=== PATIENT | male | born 1960 | race Caucasian/White ===

== ENCOUNTER → 2020-01-25 15:22 | Outpatient (CLI) | payer BC, SELFPAY ==
[2020-01-25 16:44] LABS: Basophils # 0.1 K/mm3 (0-0.2); Basophils % 0.4 % (0.1-2.0); Eosinophils # 0.2 K/mm3 (0.0-0.4); Eosinophils % 1.9 % (0.1-12.0); Hematocrit 46.9 % (42.0-52.0); Hemoglobin 15.8 g/dL (14.1-18.0); Lymphocytes # 1.5 K/mm3 (0.7-4.5); Lymphocytes % 12.7 % (10-50); Mean Corpuscular HGB Conc 33.7 g/dL (31.8-35.4); Mean Corpuscular Volume 94.9 fl (80-94); Mean Platelet Volume 8.5 fl (7.4-10.4); Monocytes # 0.5 K/mm3 (0.1-1.0); Monocytes % 4.5 % (1.7-9.3); Neutrophils # 9.2 K/mm3 (1.8-7.8); Neutrophils % 80.4 % (37.0-80.0); Platelet Count 217 K/mm3 (142-424); Red Blood Count 4.94 M/mm3 (4.60-6.20); Red Cell Distribution Width 14.4 % (11.5-17.5); White Blood Count 11.5 K/mm3 (4.8-10.8)
[2020-01-25 17:00] LABS: Alanine Aminotransferase 23 U/L (12-78); Albumin Level 4.7 g/dl (3.5-5.0); Albumin/Globulin Ratio 1.8 (1.1-1.8); Alkaline Phosphatase 69 U/L (38-126); Anion Gap 14.5 mEq/L (5-15); Aspartate Amino Transferase 22 U/L (17-59); Bilirubin,Total 0.8 mg/dl (0.2-1.3); Blood Urea Nitrogen 27 mg/dl (9-20); Calcium 9.7 mg/dl (8.4-10.2); Carbon Dioxide 30 mmol/L (22.0-30.0); Chloride 102 mmol/L (98-107); Chol/HDL Ratio 3.1 (1-3.5); Cholesterol 159 mg/dl (140-200); Estimated Glomerular Filt Rate 68 ml/min (>60); GFR (African American) 83 ML/MIN (>60); Globulin 2.6 g/dL (1.3-3.2); Glucose 104 mg/dl (74-100); HDL Cholesterol 51 mg/dl (40-60); Potassium 4.5 mmoL/L (3.5-5.1); Sodium 142 mmol/L (136-145); Total Protein,Serum 7.3 g/dl (6.3-8.2); Triglycerides 111 mg/dl (30-150); VLDL Cholesterol 22 mg/dL (0-40)
[2020-01-25 17:12] LABS: Direct LDL Cholesterol 90.14 mg/dL (100-129)
[2020-01-25 17:32] LABS: Prostate Specific Ag Screen 1.6 ng/ml (0.0-4.0)
[2020-02-01 18:08] LABS: Testosterone, Total, LC/MS 109.9 ng/dL (264.0-916.0); Testosterone,Free 4.3 pg/mL (6.6-18.1)
== END ==
PROVIDERS: Visit Provider Family Medicine
DX: E34.9 Endocrine disorder, unspecified (principal); I10 Essential (primary) hypertension; Z12.5 Encounter for screening for malignant neoplasm of prostate
CPT/HCPCS: 80053; 80061; 84402; 84403; 85025; G0103

== ENCOUNTER → 2020-07-26 09:03 | Outpatient (CLI) | payer BC, SELFPAY ==
[2020-07-26 10:02] LABS: Chloride 104 mmol/L (98-107); Potassium 4.6 mmoL/L (3.5-5.1); Sodium 140 mmol/L (136-145)
[2020-07-26 10:04] LABS: Blood Urea Nitrogen 27 mg/dl (9-20); Estimated Glomerular Filt Rate 86 ml/min (>60); GFR (African American) 104 ML/MIN (>60)
[2020-07-26 10:05] LABS: Alanine Aminotransferase 28 U/L (12-78); Albumin Level 4.8 g/dl (3.5-5.0); Alkaline Phosphatase 63 U/L (38-126); Anion Gap 14.6 mEq/L (5-15); Aspartate Amino Transferase 28 U/L (17-59); Bilirubin,Total 0.7 mg/dl (0.2-1.3); Calcium 9.8 mg/dl (8.4-10.2); Carbon Dioxide 26 mmol/L (22.0-30.0); Chol/HDL Ratio 3.6 (1-3.5); Cholesterol 145 mg/dl (140-200); Globulin 2.4 g/dL (1.3-3.2); Glucose 116 mg/dl (74-100); HDL Cholesterol 40 mg/dl (40-60); Total Protein,Serum 7.2 g/dl (6.3-8.2); Triglycerides 105 mg/dl (30-150); VLDL Cholesterol 21 mg/dL (0-40)
[2020-07-26 10:36] LABS: Thyroid Stimulating Hormone 1.91 uIU/mL (0.465-4.68)
== END ==
PROVIDERS: Visit Provider Family Medicine
DX: E78.5 Hyperlipidemia, unspecified (principal); G25.81 Restless legs syndrome; E03.9 Hypothyroidism, unspecified
CPT/HCPCS: 36415; 80053; 80061; 84443

== ENCOUNTER → 2020-12-16 14:23 | Outpatient (CLI) | payer BC, SELFPAY ==
[2020-12-16 16:23] LABS: Alanine Aminotransferase 27 U/L (12-78); Albumin Level 4.7 g/dl (3.5-5.0); Albumin/Globulin Ratio 1.9 (1.1-1.8); Alkaline Phosphatase 67 U/L (38-126); Anion Gap 15.2 mEq/L (5-15); Aspartate Amino Transferase 23 U/L (17-59); Bilirubin,Total 0.4 mg/dl (0.2-1.3); Blood Urea Nitrogen 25 mg/dl (9-20); Calcium 9.5 mg/dl (8.4-10.2); Carbon Dioxide 28 mmol/L (22.0-30.0); Chloride 104 mmol/L (98-107); Chol/HDL Ratio 3.6 (1-3.5); Cholesterol 162 mg/dl (140-200); Estimated Glomerular Filt Rate 76 ml/min (>60); GFR (African American) 92 ML/MIN (>60); Globulin 2.5 g/dL (1.3-3.2); Glucose 111 mg/dl (74-100); HDL Cholesterol 45 mg/dl (40-60); Potassium 5.2 mmoL/L (3.5-5.1); Sodium 142 mmol/L (136-145); Total Protein,Serum 7.2 g/dl (6.3-8.2); Triglycerides 100 mg/dl (30-150); VLDL Cholesterol 20 mg/dL (0-40)
[2020-12-16 16:37] LABS: Basophils % 0.6 % (0.1-2.0); Eosinophils # 0.1 K/mm3 (0.0-0.4); Eosinophils % 1.5 % (0.1-12.0); Hemoglobin 14.9 g/dL (14.1-18.0); Lymphocytes # 1.2 K/mm3 (0.7-4.5); Lymphocytes % 24.2 % (10-50); Mean Corpuscular HGB Conc 33.1 g/dL (31.8-35.4); Mean Corpuscular Hemoglobin 31.5 pg (27.0-31.2); Mean Corpuscular Volume 95.3 fl (80-94); Mean Platelet Volume 8.7 fl (7.4-10.4); Monocytes # 0.3 K/mm3 (0.1-1.0); Monocytes % 5.3 % (1.7-9.3); Neutrophils # 3.3 K/mm3 (1.8-7.8); Neutrophils % 68.3 % (37.0-80.0); Platelet Count 200 K/mm3 (142-424); Red Blood Count 4.72 M/mm3 (4.60-6.20); Red Cell Distribution Width 12.9 % (11.5-17.5); White Blood Count 4.9 K/mm3 (4.8-10.8)
[2020-12-16 16:39] LABS: T4 (Thyroxine) 6.7 ug/dl (5.53-11.0)
[2020-12-16 16:53] LABS: Thyroid Stimulating Hormone 1.89 uIU/mL (0.465-4.68)
[2020-12-16 17:37] LABS: Iron 81 ug/dL (49-181)
[2020-12-16 17:46] LABS: Total Iron Binding Capacity 251 ug/dL (261-462)
[2020-12-18 07:56] LABS: PSA, Free 0.53 ng/mL; Prostate Specific Ag 1.9 ng/mL (0.0-4.0)
[2020-12-22 21:52] LABS: Testosterone, Total, LC/MS 255.4 ng/dL (264.0-916.0); Testosterone,Free 6.9 pg/mL (6.6-18.1)
[2020-12-27 22:21] LABS: 1,25 Dihydroxy Vitamin D 66 pg/mL (.); 1,25-Dihydroxy, Vitamin D-2 <10 pg/mL (.); 1,25-Dihydroxy, Vitamin D-3 63 pg/mL (.)
== END ==
PROVIDERS: Visit Provider Family Medicine
DX: Z00.00 Encounter for general adult medical examination without abnormal findings (principal)
CPT/HCPCS: 80053; 80061; 82652; 83540; 83550; 84153; 84154; 84402; 84403; 84436; 84443; 85025

== ENCOUNTER → 2021-07-17 08:26 | Outpatient (CLI) | payer BC, SELFPAY ==
[2021-07-17 09:17] LABS: Basophils # 0.1 K/mm3 (0-0.2); Basophils % 1.4 % (0.1-2.0); Eosinophils # 0.1 K/mm3 (0.0-0.4); Eosinophils % 1.2 % (0.1-12.0); Hematocrit 44.7 % (42.0-52.0); Hemoglobin 14.8 g/dL (14.1-18.0); Lymphocytes # 1.4 K/mm3 (0.7-4.5); Lymphocytes % 26.9 % (10-50); Mean Corpuscular HGB Conc 33.1 g/dL (31.8-35.4); Mean Corpuscular Hemoglobin 31.2 pg (27.0-31.2); Mean Corpuscular Volume 94.1 fl (80-94); Mean Platelet Volume 8.8 fl (7.4-10.4); Monocytes # 0.3 K/mm3 (0.1-1.0); Monocytes % 6.1 % (1.7-9.3); Neutrophils # 3.4 K/mm3 (1.8-7.8); Neutrophils % 64.3 % (37.0-80.0); Platelet Count 222 K/mm3 (142-424); Red Blood Count 4.75 M/mm3 (4.60-6.20); Red Cell Distribution Width 13.8 % (11.5-17.5); White Blood Count 5.2 K/mm3 (4.8-10.8)
[2021-07-17 10:02] LABS: Alanine Aminotransferase 31 U/L (12-78); Albumin Level 4.8 g/dl (3.5-5.0); Alkaline Phosphatase 62 U/L (38-126); Anion Gap 11.4 mEq/L (5-15); Aspartate Amino Transferase 25 U/L (17-59); Bilirubin,Total 0.7 mg/dl (0.2-1.3); Blood Urea Nitrogen 25 mg/dl (9-20); Calcium 9.7 mg/dl (8.4-10.2); Carbon Dioxide 29 mmol/L (22.0-30.0); Chloride 105 mmol/L (98-107); Chol/HDL Ratio 3.3 (1-3.5); Cholesterol 149 mg/dl (140-200); Estimated Glomerular Filt Rate 68 ml/min (>60); GFR (African American) 82 ML/MIN (>60); Globulin 2.4 g/dL (1.3-3.2); Glucose 131 mg/dl (74-100); HDL Cholesterol 45 mg/dl (40-60); Potassium 4.4 mmoL/L (3.5-5.1); Sodium 141 mmol/L (136-145); Total Protein,Serum 7.2 g/dl (6.3-8.2); Triglycerides 104 mg/dl (30-150); VLDL Cholesterol 21 mg/dL (0-40)
[2021-07-17 10:14] LABS: Direct LDL Cholesterol 71.02 mg/dL (100-129)
[2021-07-17 10:34] LABS: Prostate Specific Ag Screen 2.3 ng/ml (0.0-4.0)
== END ==
PROVIDERS: Visit Provider Family Medicine
DX: E78.5 Hyperlipidemia, unspecified (principal); Z95.1 Presence of aortocoronary bypass graft; E29.1 Testicular hypofunction
CPT/HCPCS: 36415; 80053; 80061; 85025; G0103

== ENCOUNTER → 2021-08-29 14:04 | Outpatient (CLI) | payer BC, SELFPAY ==
[2021-08-29 14:59] LABS: Hemoglobin A1C 6.2 % (4.0-6.0)
== END ==
PROVIDERS: PCP Family Medicine; Visit Provider Family Medicine
DX: E11.9 Type 2 diabetes mellitus without complications (principal)
CPT/HCPCS: 83036

== ENCOUNTER 2022-01-23 14:27 | Emergency (ER) | payer BC, SELFPAY ==
[2022-01-23 14:27] VITALS: BP 141/92; PULSE 85; RESP 17; TEMP 36.7; O2SAT 97; BMI 22.6
--- NOTE | 2022-01-23 15:04 | HMH.EDGENADL ---
Discharge Plan Disposition Patient Disposition: Home, Self-Care Condition: Good Chief Complaint: Recheck/Abnormal Lab/Rx Prescriptions Prescriptions: No Action lisinopril 10 mg tablet 10 mg PO DAILY Qty: 90 3RF hydrocodone-acetaminophen 10-325 mg tablet See Rx Instructions .ROUTE .COMPLEX Qty: 30 0RF Rx Instructions: Take 1/2 to 1 tablet [id number] prn pain; ropinirole 3 mg tablet See Rx Instructions .ROUTE .COMPLEX Qty: 90 3RF Dose Instruction: TAKE 1 TABLET BY MOUTH AT BEDTIME Rx Instructions: TAKE 1 TABLET BY MOUTH AT BEDTIME trazodone 100 mg tablet See Rx Instructions .ROUTE .COMPLEX Qty: 90 3RF Dose Instruction: TAKE 1 TABLET BY MOUTH ONCE DAILY AT BEDTIME. Rx Instructions: TAKE 1 TABLET BY MOUTH ONCE DAILY AT BEDTIME. testosterone cypionate 200 mg/mL oil 200 mg IM Q2W Qty: 10 5RF (DME) syringe with needle 3 mL 22 gauge x 1 syringe See Rx Instructions .ROUTE .MEDSUPPLY Qty: 10 10RF Rx Instructions: As directed rosuvastatin 10 mg tablet 10 mg PO ONCE Qty: 90 3RF omeprazole 40 mg capsule,delayed release(/EC) See Rx Instructions .ROUTE .COMPLEX Qty: 90 3RF Dose Instruction: TAKE 1 CAPSULE BY MOUTH EVERY DAY Rx Instructions: TAKE 1 CAPSULE BY MOUTH EVERY DAY carvedilol 12.5 mg tablet See Rx Instructions .ROUTE .COMPLEX Qty: 180 0RF Dose Instruction: TAKE 1 TABLET BY MOUTH 2 TIMES A DAY Rx Instructions: TAKE 1 TABLET BY MOUTH 2 TIMES A DAY Referrals Follow up/Referrals: Chris Guerra MD [Primary Care Provider] - See instructions Activity Restrictions/Add. Instructions Additional Instructions/Restrictions: Warm sitz bath's daily. Apply folded 4 x 4's to area as needed. Tylenol or ibuprofen as needed for pain. Clinical Impressions Clinical Impression: External hemorrhoid, thrombosed Discharge ED Provider: Viet Estrada Adult HPI General Chief complaint: Recheck/Abnormal Lab/Rx Stated complaint: Possible Hemhroid Time Seen by Provider: 01/23/22 14:44 Mode of Arrival: Ambulatory Limitations: No Limitations Description of Symptoms (Recalled from ER Triage Doc. by RN): Pt sent over from dr guerra office for a hemorrhoid, pt denies rectal bleeding, but states its painful. He has had it since saturday. History of Present Illness HPI narrative: 3-day history of painful hemorrhoid. Bleeding. He called his primary care provider, Dr. Guerra, will try to get him into see his surgeon, but was unsuccessful. Therefore advised him to come to the emergency department. Related Data Previous Rx's Medication Instructions Recorded lisinopril 10 mg tablet 10 mg PO DAILY #90 tabs 08/16/20 carvedilol 12.5 mg tablet See Rx Instructions .Route 02/21/21 .COMPLEX #180 tabs omeprazole 40 mg capsule,delayed See Rx Instructions .Route 08/29/21 release .COMPLEX #90 caps rosuvastatin 10 mg tablet 10 mg PO ONCE #90 tabs 08/29/21 hydrocodone 10 mg-acetaminophen See Rx Instructions .Route 01/15/22 325 mg tablet .COMPLEX #30 tabs ropinirole 3 mg tablet See Rx Instructions .Route 01/15/22 .COMPLEX #90 tabs syringe with needle 3 mL 22 gauge #10 ea 01/15/22 x 1 testosterone cypionate 200 mg/mL 200 mg IM Q2W #10 mL 01/15/22 intramuscular oil trazodone 100 mg tablet See Rx Instructions .Route 01/15/22 .COMPLEX #90 tabs Allergies Allergy/AdvReac Type Severity Reaction Status Date / Time No Known Allergies Allergy Verified 01/15/22 13:04 [facility] Social History Smoking Status: Never smoker alcohol intake: never substance use type: denies use current occupational status: retired Travel in the last 8 weeks: None ROS Obtained: Yes Systems reviewed as appropriate & no additional complaints except as documented Constitutional Constitutional: Denies fever(s) Gastrointestinal Gastrointestingal: Reports other (Painful hemorrhoid
[2022-01-23 15:12] VITALS: BP 142/85; PULSE 87; RESP 18; TEMP 36.6; O2SAT 100
== END 2022-01-23 15:42 | disposition home or self-care (01) ==
PROVIDERS: Emergency Provider Emergency Medicine; PCP Family Medicine
DX: K64.5 Perianal venous thrombosis (principal)
CPT/HCPCS: 46083; 99283

== ENCOUNTER → 2022-09-10 23:44 | Outpatient (CLI) | payer BC, SELFPAY ==
[2022-09-10 19:21] LABS: Basophils % 0.3 % (0.1-2.0); Eosinophils # 0.1 K/mm3 (0.0-0.4); Eosinophils % 1.1 % (0.1-12.0); Hematocrit 50.3 % (42.0-52.0); Lymphocytes # 1.4 K/mm3 (0.7-4.5); Lymphocytes % 23.6 % (10-50); Mean Corpuscular HGB Conc 31.9 g/dL (31.8-35.4); Mean Corpuscular Hemoglobin 30.2 pg (27.0-31.2); Mean Corpuscular Volume 94.8 fl (80-94); Mean Platelet Volume 9.2 fl (7.4-10.4); Monocytes # 0.4 K/mm3 (0.1-1.0); Monocytes % 6.6 % (1.7-9.3); Neutrophils # 4.1 K/mm3 (1.8-7.8); Neutrophils % 68.5 % (37.0-80.0); Platelet Count 240 K/mm3 (142-424); Red Cell Distribution Width 13.9 % (11.5-17.5); White Blood Count 5.9 K/mm3 (4.8-10.8)
[2022-09-10 19:32] LABS: Alanine Aminotransferase 55 U/L (12-78); Albumin Level 4.9 g/dl (3.5-5.0); Albumin/Globulin Ratio 1.8 (1.1-1.8); Alkaline Phosphatase 93 U/L (38-126); Anion Gap 17.4 mEq/L (5-15); Aspartate Amino Transferase 35 U/L (17-59); Bilirubin,Total 0.7 mg/dl (0.2-1.3); Blood Urea Nitrogen 21 mg/dl (9-20); Calcium 9.8 mg/dl (8.4-10.2); Carbon Dioxide 28 mmol/L (22.0-30.0); Chloride 101 mmol/L (98-107); Chol/HDL Ratio 2.8 (1-3.5); Cholesterol 145 mg/dl (140-200); Estimated Glomerular Filt Rate 75 ml/min (>60); GFR (African American) 91 ML/MIN (>60); Globulin 2.7 g/dL (1.3-3.2); Glucose 116 mg/dl (74-100); HDL Cholesterol 52 mg/dl (40-60); Potassium 4.4 mmoL/L (3.5-5.1); Sodium 142 mmol/L (136-145); Total Protein,Serum 7.6 g/dl (6.3-8.2); Triglycerides 96 mg/dl (30-150); VLDL Cholesterol 19 mg/dL (0-40)
[2022-09-10 19:43] LABS: Direct LDL Cholesterol 73.39 mg/dL (100-129)
[2022-09-10 20:02] LABS: Hemoglobin A1C 6.5 % (4.0-6.0); Prostate Specific Ag Screen 2.9 ng/ml (0.0-4.0)
== END ==
PROVIDERS: PCP Family Medicine; Visit Provider Family Medicine
DX: Z01.89 Encounter for other specified special examinations (principal); Z79.899 Other long term (current) drug therapy; Z12.5 Encounter for screening for malignant neoplasm of prostate
CPT/HCPCS: 80053; 80061; 83036; 85025; G0103

== ENCOUNTER → 2023-02-18 08:26 | Outpatient (CLI) | payer BC, SELFPAY ==
[2023-02-18 19:38] LABS: Alanine Aminotransferase 33 U/L (12-78); Albumin Level 4.9 g/dl (3.5-5.0); Albumin/Globulin Ratio 1.8 (1.1-1.8); Alkaline Phosphatase 70 U/L (38-126); Anion Gap 14.3 mEq/L (5-15); Aspartate Amino Transferase 26 U/L (17-59); Bilirubin,Total 0.5 mg/dl (0.2-1.3); Blood Urea Nitrogen 26 mg/dl (9-20); Carbon Dioxide 27 mmol/L (22.0-30.0); Chloride 103 mmol/L (98-107); Estimated Glomerular Filt Rate 68 ml/min (>60); GFR (African American) 82 ML/MIN (>60); Globulin 2.8 g/dL (1.3-3.2); Glucose 115 mg/dl (74-100); Potassium 4.3 mmoL/L (3.5-5.1); Sodium 140 mmol/L (136-145); Total Protein,Serum 7.7 g/dl (6.3-8.2)
[2023-02-20 11:40] LABS: C-Peptide 4.4 ng/mL (1.1-4.4)
== END ==
PROVIDERS: PCP Family Medicine; Visit Provider Family Medicine
DX: R73.09 Other abnormal glucose (principal)
CPT/HCPCS: 80053; 84681

== ENCOUNTER 2023-08-03 11:44 | Outpatient (CLI) | payer BC, SELFPAY ==
--- NOTE | 2023-08-03 11:50 | XR_ITS ---
PROCEDURE INFORMATION: Exam: XR Cervical Spine Exam date and time: 08/03/2023 11:49 AM Age: 63 years old Clinical indication: Neck pain; Additional info: Back pain TECHNIQUE: Imaging protocol: Radiologic exam of the cervical spine. Views: 2 or 3 views. COMPARISON: No relevant prior studies available. FINDINGS: Bones/joints: Cervical spondylosis with multilevel disc degeneration. Changes of disc degeneration most pronounced at C5-C6 and C6-C7. Soft tissues: Unremarkable. IMPRESSION: 1. Cervical spondylosis with multilevel disc degeneration. Changes of disc degeneration most pronounced at C5-C6 and C6-C7. 2. No evidence of acute osseous injury.
--- NOTE | 2023-08-03 11:50 | XR_ITS ---
PROCEDURE INFORMATION: Exam: XR Lumbosacral Spine Exam date and time: 08/03/2023 11:42 AM Age: 63 years old Clinical indication: Low back pain TECHNIQUE: Imaging protocol: Radiologic exam of the lumbosacral spine. Views: 2 or 3 views. COMPARISON: No relevant prior studies available. FINDINGS: Bones/joints: Mild scoliosis of the lumbar spine convexity to the left. Mild spondylitic changes. Slight anterolisthesis of L5 with respect L4. Soft tissues: Unremarkable. IMPRESSION: 1. No evidence of acute osseous injury. 2. Mild spondylitic changes. Slight anterolisthesis of L5 with respect L4.
== END 2023-08-03 23:59 | disposition home or self-care (01) ==
LOC: RAD 11:46
PROVIDERS: PCP Family Medicine; Visit Provider Family Medicine
DX: M54.9 Dorsalgia, unspecified (principal); G89.29 Other chronic pain; M54.2 Cervicalgia; M54.50 Low back pain, unspecified
CPT/HCPCS: 72040; 72100

== ENCOUNTER 2023-10-09 08:23 | Outpatient (CLI) | payer BC, SELFPAY ==
[2023-10-09 09:15] LABS: Basophils % 0.8 % (0.1-2.0); Eosinophils # 0.1 K/mm3 (0.0-0.4); Eosinophils % 1.7 % (0.1-12.0); Hematocrit 44.5 % (42.0-52.0); Hemoglobin 14.4 g/dL (14.1-18.0); Lymphocytes # 1.4 K/mm3 (0.7-4.5); Lymphocytes % 28.2 % (10-50); MANUAL DIFFERENTIAL MANUAL DIFFERENTIAL (MANUAL DIFF); Mean Corpuscular HGB Conc 32.3 g/dL (31.8-35.4); Mean Corpuscular Volume 95.8 fl (80-94); Mean Platelet Volume 8.3 fl (7.4-10.4); Monocytes # 0.3 K/mm3 (0.1-1.0); Monocytes % 5.3 % (1.7-9.3); Neutrophils # 3.1 K/mm3 (1.8-7.8); Platelet Count 198 K/mm3 (142-424); Red Blood Count 4.64 M/mm3 (4.60-6.20); Red Cell Distribution Width 14.1 % (11.5-17.5); White Blood Count 4.9 K/mm3 (4.8-10.8)
[2023-10-09 09:53] LABS: Alanine Aminotransferase 30 U/L (12-78); Albumin Level 4.5 g/dl (3.5-5.0); Albumin/Globulin Ratio 1.8 (1.1-1.8); Alkaline Phosphatase 65 U/L (38-126); Anion Gap 10.6 mEq/L (5-15); Aspartate Amino Transferase 23 U/L (17-59); Bilirubin,Total 0.6 mg/dl (0.2-1.3); Blood Urea Nitrogen 27 mg/dl (9-20); Calcium 9.9 mg/dl (8.4-10.2); Carbon Dioxide 27 mmol/L (22.0-30.0); Chloride 108 mmol/L (98-107); Chol/HDL Ratio 2.8 (1-3.5); Cholesterol 136 mg/dl (140-200); Estimated Glomerular Filt Rate 75 ml/min (>60); GFR (African American) 91 ML/MIN (>60); Globulin 2.5 g/dL (1.3-3.2); Glucose 112 mg/dl (74-100); HDL Cholesterol 48 mg/dl (40-60); Potassium 4.6 mmoL/L (3.5-5.1); Sodium 141 mmol/L (136-145); Triglycerides 61 mg/dl (30-150); VLDL Cholesterol 12 mg/dL (0-40)
[2023-10-09 10:04] LABS: Direct LDL Cholesterol 65.88 mg/dL (100-129)
[2023-10-09 10:23] LABS: Prostate Specific Ag Screen 3.1 ng/ml (0.0-4.0)
[2023-10-09 12:45] LABS: Lymphocytes % 41 % (10-50); Monocytes % 7 % (2-9); Neutrophils % 52 % (42-76); Total Cells Counted 100
[2023-10-09 12:46] LABS: Platelet Estimate Normal; RBC Morphology Normal
== END 2023-10-09 23:59 | disposition home or self-care (01) ==
LOC: LAB 08:23
PROVIDERS: PCP Family Medicine; Visit Provider Family Medicine
DX: Z12.5 Encounter for screening for malignant neoplasm of prostate (principal); Z95.1 Presence of aortocoronary bypass graft
CPT/HCPCS: 36415; 80053; 80061; 85007; 85014; 85018; 85048; 85049; G0103

== ENCOUNTER 2023-12-30 14:14 | Emergency (ER) | payer BC, SELFPAY ==
--- NOTE | 2023-12-30 14:56 | ED_ITS ---
Discharge Plan Disposition Patient Disposition: Home, Self-Care Condition: Good Prescriptions Prescriptions: No Action tizanidine 4 mg capsule 4 mg PO BID PRN (Reason: muscle spasticity) Qty: 180 3RF omeprazole 40 mg capsule,delayed release(DR/EC) See Rx Instructions .ROUTE .COMPLEX Qty: 90 3RF Dose Instruction: TAKE 1 CAPSULE BY MOUTH EVERY DAY Rx Instructions: TAKE 1 CAPSULE BY MOUTH EVERY DAY rosuvastatin 10 mg tablet 10 mg PO ONCE Qty: 90 3RF ropinirole 3 mg tablet See Rx Instructions .ROUTE .COMPLEX Qty: 90 3RF Dose Instruction: TAKE 1 TABLET BY MOUTH AT BEDTIME Rx Instructions: TAKE 1 TABLET BY MOUTH AT BEDTIME hydrocortisone-pramoxine 1-1 % cream 1 applic UT TID PRN (Reason: hemorrhoids) Qty: 30 10RF oxycodone-acetaminophen [Percocet] 10-325 mg tablet 1 tab PO DAILY PRN (Reason: pain) Qty: 30 0RF Rx Instructions: 1/2-1 qd Referrals Follow up/Referrals: Chris Shipman MD [Primary Care Provider] - See instructions Sj Salguero MD [Staff Physician] - See instructions Activity Restrictions/Add. Instructions Additional Instructions/Restrictions: Follow up with general surgery. I put in a referral to Dr. Salguero. Please call his office and get a follow up appointment there. His office phone number will be on this paperwork. Take warm sitz baths three times per day for the next few days. Apply folded 4 x 4's to area as needed. You will have some oozing of blood for the next couple of days. Tylenol or ibuprofen as needed for pain. Eat a diet high in fiber. GO TO THE ER FOR ANY WORSENING SYMPTOMS OR CONCERNS Clinical Impressions Clinical Impression: External hemorrhoid, thrombosed Stand Alone Forms Stand Alone Forms: Work/School Release Instructions Patient Instructions: Hemorrhoids, DI for Hemorrhoids Print Language Print Language: Japanese Discharge ED Provider: Pavan Hirsch [facility] General Stated complaint: Thrombosed hemorrhoid Time Seen by Provider: 12/30/23 14:56 History of Present Illness Provider Complaint: He states that he has had pain from a thrombosed hemorrhoid for the past 3 days. He has had to have one excised here before. Related Data Previous Rx's ?Medication ?Instructions ?Recorded hydrocortisone-pramoxine 1 %-1 % 1 applic UT TID PRN hemorrhoids 01/25/22 rectal cream #30 grams omeprazole 40 mg capsule,delayed See Rx Instructions .Route 09/18/23 release .COMPLEX #90 caps ropinirole 3 mg tablet See Rx Instructions .Route 09/18/23 .COMPLEX #90 tabs rosuvastatin 10 mg tablet 10 mg PO ONCE #90 tabs 09/18/23 tizanidine 4 mg capsule 4 mg PO BID PRN muscle spasticity 09/18/23 #180 caps oxycodone-acetaminophen 10 mg-325 1 tab PO DAILY PRN pain #30 tabs 11/27/23 mg tablet (Percocet) Allergies Allergy/AdvReac Type Severity Reaction Status Date / Time No Known Allergies Allergy Verified 09/18/23 13:33 [facility] Disclaimer: The information contained in this section may have been updated after the patient was seen, as this information can be updated by other users. Medical History Negative colorectal cancer screening using DNA-based stool test Cologuard performed on 02/28/23 External hemorrhoid, thrombosed Restless leg syndrome Hypogonadism in male Surgical History H/O mitral valve repair S/P CABG x 3 Social History Smoking Status: Never smoker alcohol intake: never substance use type: denies use current occupational status: retired Travel in the last 8 weeks: None ROS Obtained: Yes All systems reviewed & no additional complaints except as documented Constitutional Constitutional: Denies chills and Denies fever(s) Eyes Eyes: Denies eye discharge ENT Ears, Nose, Mouth, and Throat: Denies dizziness, Denies otalgia and Denies sore throat Cardiovascular Cardiovascular: Denies chest pain Respiratory Respiratory: Denies shortness of breath, Denies chest congestion, Denies cough, Denies stridor and Denies wheezing Gastrointestinal Gastrointestingal: Denies nausea or vomiting Musculoskeletal Musculoskeletal: Reports system reviewed and no additional complaints, except as documented and Denies arthralgias Integumentary/Breasts Skin/Breast: Denies rash Neurologic Neurologic: Denies dizziness and Denies paresthesias Allergic/Immunologic Allergic/Immunologic: Denies wheezing Physical Exam General General appearance: alert and in no apparent distress Head Head exam: atraumatic, normocephalic and normal inspection Eye Eye exam: Present normal appearance, PERRL and EOMI ENT ENT exam: Present normal exam, normal oropharynx, mucous membranes moist, TM's normal bilaterally and normal external ear exam Neck Neck exam: Present normal inspection, full ROM and trachea midline; Absent meningismus or lymphadenopathy Chest Chest inspection: Present normal inspection and symmetric chest wall rise; Absent tenderness Respiratory Respiratory exam: Present normal lung sounds bilaterally; Absent respiratory distress Cardiovascular Cardiovascular exam: Present regular rate and normal rhythm; Absent JVD Abdominal Exam Abdominal exam: Present soft and normal bowel sounds; Absent distention, tenderness or guarding Rectal Exam Rectal exam: Present hemorrhoids (He has a thrombosed external hemorrhoid. ) Extremities Exam Extremities exam: Present normal inspection, full ROM and normal capillary refill; Absent calf tenderness Back Exam Back exam: Present normal inspection; Absent tenderness Neurological Exam Neurological exam: Present alert and oriented X3 Psychiatric Psychiatric exam: Present normal affect and normal mood Skin Skin exam: Present warm, dry, intact and normal color Lymphatic Lymphatic Findings: no adenopathy Medical Decision Making Medical Records Medical records reviewed: No I reviewed the patient's medical records. Screening: Per USPSTF and CDC recommendations, given the prevalence of disease in our region, it is our hospital?s policy to screen for HIV and viral Hepatitis for all patients aged 18 and over and those with ongoing risk factors. Wade Inquiry Pt receiving controlled substance: No Procedures Risk/Benefits of Procedure(s) Were Explained: Yes Miscellaneous Procedure Procedure Performed: an external thrombosed hemorrhoid was incised and the clot was removed by expresion. the area was anesthetized with 3 milliliters of 2% lidocaine with epi. a #11 blade was then used to make an incision in the thrombosed hemorrhoid. the clot was then expressed. a small amount of bleeding was noted. he tolerated the procedure well, neosporin was then applied to the wound and it was covered with sterile 4X4s.
[2023-12-30 15:05] VITALS: BP 135/73; PULSE 87; RESP 20; TEMP 36.7; O2SAT 96; BMI 23.1
[2023-12-30 15:52] VITALS: BP 135/73; PULSE 87; RESP 20; TEMP 36.7; O2SAT 96
== END 2023-12-30 15:56 | disposition home or self-care (01) ==
PROVIDERS: Emergency Provider Nurse Practitioner Family; PCP Family Medicine
DX: K64.5 Perianal venous thrombosis (principal)
CPT/HCPCS: 99204; 99212; G0463

== ENCOUNTER 2024-03-02 10:45 | Outpatient (CLI) | payer BC, SELFPAY ==
[2024-03-02 18:36] LABS: Basophils # 0.1 K/mm3 (0-0.2); Basophils % 0.8 % (0.1-2.0); Eosinophils # 0.1 K/mm3 (0.0-0.4); Eosinophils % 1.6 % (0.1-12.0); Hematocrit 47.8 % (42.0-52.0); Hemoglobin 15.8 g/dL (14.1-18.0); Lymphocytes # 1.6 K/mm3 (0.7-4.5); Lymphocytes % 25.4 % (10-50); Mean Corpuscular Hemoglobin 30.5 pg (27.0-31.2); Mean Corpuscular Volume 92.6 fl (80-94); Mean Platelet Volume 9.8 fl (7.4-10.4); Monocytes # 0.4 K/mm3 (0.1-1.0); Monocytes % 6.1 % (1.7-9.3); Neutrophils # 4.1 K/mm3 (1.8-7.8); Neutrophils % 66.2 % (37.0-80.0); Platelet Count 205 K/mm3 (142-424); Red Blood Count 5.16 M/mm3 (4.60-6.20); Red Cell Distribution Width 13.9 % (11.5-17.5); White Blood Count 6.1 K/mm3 (4.8-10.8)
[2024-03-02 19:12] LABS: Alanine Aminotransferase 35 U/L (12-78); Albumin Level 4.6 g/dl (3.5-5.0); Albumin/Globulin Ratio 2.1 (1.1-1.8); Alkaline Phosphatase 80 U/L (38-126); Anion Gap 11.8 mEq/L (5-15); Aspartate Amino Transferase 25 U/L (17-59); Bilirubin,Total 0.6 mg/dl (0.2-1.3); Blood Urea Nitrogen 24 mg/dl (9-20); Calcium 9.5 mg/dl (8.4-10.2); Carbon Dioxide 27 mmol/L (22.0-30.0); Chloride 108 mmol/L (98-107); Cholesterol 131 mg/dl (140-200); Estimated Glomerular Filt Rate 75 ml/min (>60); GFR (African American) 91 ML/MIN (>60); Globulin 2.2 g/dL (1.3-3.2); Glucose 123 mg/dl (74-100); HDL Cholesterol 44 mg/dl (40-60); Potassium 4.8 mmoL/L (3.5-5.1); Sodium 142 mmol/L (136-145); Total Protein,Serum 6.8 g/dl (6.3-8.2); Triglycerides 76 mg/dl (30-150); VLDL Cholesterol 15 mg/dL (0-40)
[2024-03-02 19:23] LABS: Direct LDL Cholesterol 73.84 mg/dL (100-129)
[2024-03-02 20:28] LABS: Hemoglobin A1C 6.5 % (4.0-6.0)
== END 2024-03-02 23:59 | disposition home or self-care (01) ==
LOC: LAB.DROPOF 03-03 15:11
PROVIDERS: PCP Family Medicine; Visit Provider Family Medicine
DX: Z13.9 Encounter for screening, unspecified (principal)
CPT/HCPCS: 80053; 80061; 83036; 85025